=== PATIENT | male | born 1945 | race Caucasian/White ===

== ENCOUNTER 2021-03-30 09:15 | Inpatient (IN) | payer MEDICARE ==
[2021-05-07] MEDS ORDERED: ceFAZolin 2 GM/DEX 5% 100 ML BAG ONE (05:53)
[2021-05-07] MEDS ORDERED: Sodium Chloride 0.9% 100 ML ONE (05:53)
[2021-05-07] MEDS ORDERED: Tranexamic Acid 1,000 MG/10 ML VIAL ONE ×2 (05:53→10:32)
[2021-05-07] MEDS ORDERED: VANCOMYCIN 2 GRAM/400 ML BAG 2 GM in Premix Bag 1 BAG IVPB SCH (06:15)
[2021-05-07] MEDS ORDERED: Fentanyl 100 MCG/2 ML VIAL ONE ×2 (06:29→07:22)
[2021-05-07] MEDS ORDERED: SUGAMMADEX SODIUM 200 MG/2 ML VIAL ONE ×2 (06:29→09:51)
[2021-05-07] MEDS ORDERED: PROPOFOL 200 MG/20 ML VIAL ONE (07:03)
[2021-05-07] MEDS ORDERED: PHENYLEPHRINE-NS 100 MCG/ML 10 ML SYRINGE ONE ×2 (07:03→08:17)
[2021-05-07] MEDS ORDERED: Ropivacaine 0.5% HCl/PF (150 MG/30 ML VIAL) ONE (07:03)
[2021-05-07] MEDS ORDERED: Ondansetron PF 4 MG/2 ML Vial ONE (07:03)
[2021-05-07] MEDS ORDERED: Dexamethasone 20 MG/5 ML VIAL ONE (07:03)
[2021-05-07] MEDS ORDERED: Rocuronium Bromide 10 MG/ML (10ML VIAL) ONE (07:03)
[2021-05-07] MEDS ORDERED: Midazolam HCl 2 mg/2 ml Vial ONE (08:11)
[2021-05-07] MEDS ORDERED: Phenylephrine 10 MG/ML VIAL ONE (08:17)
[2021-05-07] MEDS ORDERED: HYDROcodone/Acetaminophen 5/325 mg Tablet PO PRN ×2 (10:00)
[2021-05-07] MEDS ORDERED: traMADol HCl 50 MG TAB PO PRN ×4 (10:00→13:20)
[2021-05-07] MEDS ORDERED: Promethazine HCl 25 MG/ML VIAL IM PRN (10:00)
[2021-05-07] MEDS ORDERED: Zolpidem Tartrate 5 MG TAB PO PRN ×2 (10:00→13:20)
[2021-05-07] MEDS ORDERED: Ropivacaine 0.2% 550 ML 550 ML NERVE BLCK SCH (10:00)
[2021-05-07] MEDS ORDERED: Ondansetron PF 4 MG/2 ML Vial IVP PRN ×2 (10:00→13:20)
[2021-05-07] MEDS ORDERED: Ondansetron ODT 4 MG TAB PO PRN (13:20)
[2021-05-07] MEDS ORDERED: diphenhydrAMINE 50 MG CAP PO PRN (13:20)
[2021-05-07] MEDS ORDERED: Milk Of Magnesia 30 ML UDCUP PO PRN (13:20)
[2021-05-07] MEDS ORDERED: Acetaminophen 325 MG TAB PO PRN (13:20)
[2021-05-07] MEDS ORDERED: HYDROcodone/Acetaminophen 10/325 mg Tablet PO PRN ×2 (13:20)
[2021-05-07] MEDS ORDERED: Bisacodyl 10 MG SUPP PR PRN (13:20)
[2021-05-07] MEDS ORDERED: Methocarbamol 500 MG TAB PO PRN (13:20)
[2021-05-07] MEDS ORDERED: CEFAZOLIN 2 GM in Premix Bag 1 BAG IVPB SCH (14:00)
[2021-05-07] MEDS ORDERED: Vancomycin 1.5 GRAM/300 ML BAG 1.5 GM in Premix Bag 1 BAG IVPB SCH (18:00)
[2021-05-07] MEDS: Mometasone 200 MCG/Formoterol 5 MCG 120 PUFF INHALER INH SCH (18:34)
[2021-05-07] MEDS: Lactated Ringer's 1,000 ML IV SCH (18:40)
[2021-05-07] MEDS: ceFAZolin Sodium/D5W 2 GM in Premix Bag 1 BAG IVPB SCH ×2 (18:47→21:30)
[2021-05-07] MEDS: Ketorolac Tromethamine 30 MG/ML VIAL IVP SCH (18:48)
[2021-05-07 20:19] VITALS: BMI 40.1
[2021-05-07] MEDS: Famotidine 20 MG TAB PO SCH (21:30)
[2021-05-08] MEDS: Ketorolac Tromethamine 30 MG/ML VIAL IVP SCH ×3 (00:43→11:24)
[2021-05-08] MEDS: Mometasone 200 MCG/Formoterol 5 MCG 120 PUFF INHALER INH SCH (06:44)
[2021-05-08] MEDS: Lactated Ringer's 1,000 ML IV SCH (06:54)
[2021-05-08] MEDS: Famotidine 20 MG TAB PO SCH (08:50)
[2021-05-08] MEDS ORDERED: Tamsulosin HCl 0.4 MG CAP PO SCH (09:00)
[2021-05-08] MEDS ORDERED: FLU VACC QS2021-22(65YR UP)/PF 240 MCG/0.7 ML SYRINGE IM ONE (09:00)
[2021-05-08] MEDS ORDERED: Furosemide 20 MG TAB PO SCH (09:00)
[2021-05-08 11:15] VITALS: TEMP 97.8
[2021-05-08 15:37] VITALS: BP 137/83
== END 2021-05-08 15:55 | disposition home or self-care (01) | DRG 483 ==
LOC: EDSTATUS 04-02 09:15 → SURG A 05-07 05:36 → SURG B 05-07 12:46
PROVIDERS: ADMIT Orthopaedic Surgery; ATTEND Orthopaedic Surgery
PROC: 0RRJ00Z Replacement of Right Shoulder Joint with Reverse Ball and Socket Synthetic Substitute, Open Approach (ICD-10-PCS; principal; 2021-05-07)
PROC: 0LS30ZZ Reposition Right Upper Arm Tendon, Open Approach (ICD-10-PCS; 2021-05-07)
DX: M19.011 Primary osteoarthritis, right shoulder (principal); M75.101 Unspecified rotator cuff tear or rupture of right shoulder, not specified as traumatic
CPT/HCPCS: 85610; 94660; A4306; C1713; C1776; J1100; J1885; J2250; J2370; J2405; J2704; J2795; J3010; J3490; U0003; U0005

== ENCOUNTER 2021-05-05 14:41 | Outpatient (CLI) | payer MEDICARE ==
[2021-05-06 00:28] LABS: SARS-CoV-2 PCR by NAA Not Detected (NotDetected)
== END 2021-05-05 14:42 | disposition home or self-care (01) ==
LOC: LABBT 14:41
PROVIDERS: ATTEND Orthopaedic Surgery
DX: Z01.812 Encounter for preprocedural laboratory examination (principal); M19.011 Primary osteoarthritis, right shoulder; Z20.822 Contact with and (suspected) exposure to COVID-19
CPT/HCPCS: U0003; U0005

== ENCOUNTER 2022-02-26 14:31 | Outpatient (CLI) | payer MEDICARE ==
[2022-02-26 15:22] LABS: #Eosinphils 0.1 10x3/uL (0.0-0.5); #Monocytes 0.7 10x3/uL (0.0-1.1); #Neutrophils 5.2 10x3/uL (1.5-8.4); %Basophils 0.5 % (0.0-2.0); %Eosinophils 1.8 % (0.0-6.0); %Lymphocytes 20.7 % (18.0-47.0); %Monocytes 9.1 % (0.0-10.0); %Neutrophils 67.6 % (40.0-75.0); Hemoglobin 16.5 g/dL (13.5-17.5); Mean Corpuscular Hemoglobin 30.3 pg (27.0-33.0); Mean Corpuscular Volume 89.2 fl (81.2-95.1); Platelet Count 166 10x3/uL (150-450); RBC Distribution Width 13.7 % (11.5-14.5); Red Blood Cell (RBC) Count 5.44 10x6/uL (4.32-5.72); White Blood Cell (WBC) Count 7.7 10x3/uL (3.5-10.5)
[2022-02-26 15:30] LABS: Bacteria/HPF None Seen HPF (None Seen); RBC/HPF 0-3 HPF (0-3); Squamous Epithelial 0-3 HPF (0-3); WBC/HPF 0-3 HPF (0-3)
== END 2022-02-26 14:32 | disposition home or self-care (01) ==
LOC: LABBT 14:31
PROVIDERS: ATTEND Orthopaedic Surgery Hand Surgery
DX: Z01.818 Encounter for other preprocedural examination (principal); G56.02 Carpal tunnel syndrome, left upper limb; Z20.822 Contact with and (suspected) exposure to COVID-19
CPT/HCPCS: 81015; 85025; 87811

== ENCOUNTER 2022-03-02 11:03 | Day surgery (SDC) | payer MEDICARE ==
[2022-03-01 10:46] VITALS: BMI 39.7
[2022-03-02] MEDS ORDERED: Lidocaine 1% MPF 2 ML VIAL ONE (12:13)
[2022-03-02] MEDS ORDERED: Neomycin-Polymyxin 1 ML AMP ONE (12:22)
[2022-03-02] MEDS ORDERED: Bupivacaine PF 0.5% 30 ML VIAL ONE (12:22)
[2022-03-02] MEDS ORDERED: Betamet Acet/Betamet Na Ph 30 MG/5 ML VIAL ONE (12:22)
[2022-03-02] MEDS ORDERED: Bacitracin Zinc Ointment 30 gm TUBE ONE (12:22)
[2022-03-02] MEDS ORDERED: Sodium Chloride 0.9% 100 ML ONE (12:48)
[2022-03-02] MEDS ORDERED: CEFAZOLIN 2 GM VIAL ONE (12:48)
[2022-03-02] MEDS ORDERED: fentaNYL Citrate/PF 100 MCG/2 ML SYRINGE ONE (12:57)
[2022-03-02] MEDS ORDERED: Lidocaine 1% PF 5 ML VIAL ONE (13:14)
[2022-03-02] MEDS ORDERED: Ondansetron PF 4 MG/2 ML Vial ONE (13:14)
[2022-03-02] MEDS ORDERED: Ketorolac Tromethamine 30 MG/ML VIAL ONE (13:14)
[2022-03-02] MEDS ORDERED: Dexamethasone 20 MG/5 ML VIAL ONE (13:14)
[2022-03-02] MEDS ORDERED: PROPOFOL 200 MG/20 ML VIAL ONE (13:14)
== END 2022-03-02 15:43 | disposition home or self-care (01) ==
LOC: SDC 11:03
PROVIDERS: ATTEND Orthopaedic Surgery Hand Surgery
PROC: 01N50ZZ Release Median Nerve, Open Approach (ICD-10-PCS; principal; 2022-03-02)
DX: G56.03 Carpal tunnel syndrome, bilateral upper limbs (principal); Z79.82 Long term (current) use of aspirin; Z79.899 Other long term (current) drug therapy; Z87.891 Personal history of nicotine dependence
CPT/HCPCS: J0690; J0702; J1100; J1885; J2405; J2704; J3490; S0020

== ENCOUNTER 2022-04-15 16:25 | Outpatient (CLI) | payer MEDICARE ==
[2022-04-15 17:30] LABS: #Eosinphils 0.1 10x3/uL (0.0-0.5); #Monocytes 0.7 10x3/uL (0.0-1.1); #Neutrophils 5.7 10x3/uL (1.5-8.4); %Basophils 0.4 % (0.0-2.0); %Eosinophils 0.7 % (0.0-6.0); %Lymphocytes 15.2 % (18.0-47.0); %Monocytes 9.2 % (0.0-10.0); Hemoglobin 15.9 g/dL (13.5-17.5); Mean Corpuscular HGB CONC 34.2 g/dL (32.0-36.0); Mean Corpuscular Hemoglobin 30.3 pg (27.0-33.0); Mean Corpuscular Volume 88.6 fl (81.2-95.1); Mean Platelet Volume 10.7 fl (7.4-10.4); Platelet Count 145 10x3/uL (150-450); RBC Distribution Width 13.9 % (11.5-14.5); Red Blood Cell (RBC) Count 5.25 10x6/uL (4.32-5.72); White Blood Cell (WBC) Count 7.7 10x3/uL (3.5-10.5)
[2022-04-15 17:41] LABS: Prothrombin Time 10.9 sec (9.5-12.1)
[2022-04-15 17:47] LABS: Anion Gap 16 mmol/L (10-20); BUN (Urea Nitrogen) 21 mg/dL (8.4-25.7); Calc. Creatinine Clearance 0 mL/min (70-130); Calcium 8.6 mg/dL (7.8-10.44); Carbon Dioxide 23 mmol/L (23-31); Chloride 108 mmol/L (98-107); Estimated GFR 89; Glucose 93 mg/dL (83-110); Potassium 4.2 mmol/L (3.5-5.1); Sodium 143 mmol/L (136-145)
== END 2022-04-15 16:26 | disposition home or self-care (01) ==
LOC: LABBT 16:25
PROVIDERS: ATTEND Orthopaedic Surgery
DX: Z01.812 Encounter for preprocedural laboratory examination (principal); Z20.822 Contact with and (suspected) exposure to COVID-19
CPT/HCPCS: 80048; 85025; 85610; 87081; 87811

== ENCOUNTER 2022-04-20 05:35 | Inpatient (IN) | payer MEDICARE ==
[2022-04-19 12:18] VITALS: BMI 39.7
[2022-04-20] MEDS ORDERED: Sodium Chloride 0.9% 100 ML ONE ×2 (05:55→06:58)
[2022-04-20] MEDS ORDERED: Tranexamic Acid 1,000 MG/10 ML VIAL ONE ×2 (05:55→09:34)
[2022-04-20] MEDS ORDERED: VANCOMYCIN 2 GRAM/500 ML BAG 2 GM in Premix Bag 1 BAG IVPB SCH (06:00)
[2022-04-20] MEDS ORDERED: Fentanyl 100 MCG/2 ML VIAL ONE ×3 (06:35→11:53)
[2022-04-20] MEDS ORDERED: Midazolam HCl 2 mg/2 ml Vial ONE (06:35)
[2022-04-20] MEDS ORDERED: Lidocaine 1% PF 5 ML VIAL ONE (06:57)
[2022-04-20] MEDS ORDERED: CEFAZOLIN 2 GM VIAL ONE (06:58)
[2022-04-20] MEDS ORDERED: ePHEDrine 50 MG/ML VIAL ONE (07:08)
[2022-04-20] MEDS ORDERED: Ondansetron PF 4 MG/2 ML Vial ONE (07:08)
[2022-04-20] MEDS ORDERED: Ketorolac Tromethamine 30 MG/ML VIAL ONE (07:08)
[2022-04-20] MEDS ORDERED: PROPOFOL 200 MG/20 ML VIAL ONE (07:08)
[2022-04-20] MEDS ORDERED: Lidocaine 1% MPF 2 ML VIAL ONE (07:08)
[2022-04-20] MEDS ORDERED: Rocuronium Bromide 10 MG/ML (10ML VIAL) ONE (07:08)
[2022-04-20] MEDS ORDERED: Ketamine 50 MG/ML (10ML VIAL) ONE (07:12)
[2022-04-20] MEDS ORDERED: fentaNYL Citrate/PF 100 MCG/2 ML SYRINGE ONE (07:12)
[2022-04-20] MEDS ORDERED: Dexmedetomidine 200 MCG/2 ML VIAL ONE (07:12)
[2022-04-20] MEDS ORDERED: HYDROmorphone 0.5 MG/0.5 ML SYRINGE ONE (07:12)
[2022-04-20] MEDS ORDERED: Bupivacaine PF 0.5% 30 ML VIAL ONE ×2 (07:54→08:24)
[2022-04-20] MEDS ORDERED: SUGAMMADEX SODIUM 200 MG/2 ML VIAL ONE ×2 (08:43→09:10)
[2022-04-20] MEDS ORDERED: diphenhydrAMINE 25 MG CAP PO PRN (08:46)
[2022-04-20] MEDS ORDERED: Zolpidem Tartrate 5 MG TAB PO PRN ×2 (08:46→11:00)
[2022-04-20] MEDS ORDERED: Ondansetron PF 4 MG/2 ML Vial IVP PRN ×2 (08:46→11:00)
[2022-04-20] MEDS ORDERED: Acetaminophen 325 MG TAB PO PRN (08:46)
[2022-04-20] MEDS ORDERED: Promethazine HCl 25 MG/ML VIAL IM PRN ×3 (08:46→11:00)
[2022-04-20] MEDS ORDERED: HYDROmorphone 2 MG/ML VIAL SLOW IVP PRN (09:25)
[2022-04-20] MEDS ORDERED: Promethazine HCl 25 MG/ML VIAL IVPB PRN (09:25)
[2022-04-20] MEDS ORDERED: Ondansetron HCl/PF 4 MG/2 ML Vial IVP PRN (09:25)
[2022-04-20] MEDS ORDERED: PACU-Morphine 4MG/ML VIAL SLOW IVP PRN (09:25)
[2022-04-20] MEDS ORDERED: Fentanyl 100 MCG/2 ML VIAL IV PRN (10:52)
[2022-04-20] MEDS ORDERED: traMADol HCl 50 MG TAB PO PRN ×2 (11:00)
[2022-04-20] MEDS ORDERED: Ketorolac Tromethamine 30 MG/ML VIAL IVP SCH (12:00)
[2022-04-20] MEDS: Aspirin 81 mg Enteric Coated Tablet PO SCH ×2 (14:10→21:20)
[2022-04-20] MEDS: Ferrous Gluconate 324 MG TAB PO SCH ×2 (14:10→21:20)
[2022-04-20] MEDS: Sodium Chloride 0.9% 1,000 ML IV SCH ×2 (14:10→18:27)
[2022-04-20] MEDS: Multivitamin W/ Minerals 1 TAB PO SCH (14:11)
[2022-04-20] MEDS: Senokot S 8.6-50 MG TAB PO SCH ×2 (14:11→21:21)
[2022-04-20] MEDS: Ketorolac Tromethamine 30 MG/ML VIAL IVP SCH ×2 (14:41→21:21)
[2022-04-20] MEDS: CEFAZOLIN 2 GM in Sodium Chloride 0.9% 100 ML IVPB SCH ×2 (14:41→21:23)
[2022-04-20] MEDS: Mometasone 200 MCG/Formoterol 5 MCG 120 PUFF INHALER INH SCH (18:58)
[2022-04-21] MEDS: Ketorolac Tromethamine 30 MG/ML VIAL IVP SCH ×4 (03:39→20:12)
[2022-04-21] MEDS: Sodium Chloride 0.9% 1,000 ML IV SCH ×3 (03:41→23:30)
[2022-04-21 06:25] LABS: Hemoglobin 13.3 g/dL (14.0-18.0); Mean Corpuscular Hemoglobin 31.2 pg (27.0-31.0); Mean Corpuscular Volume 94.4 fL (78.0-98.0); Mean Platelet Volume 8.2 fL (7.4-10.4); Platelet Count 126 thou/uL (130-400); RBC Distribution Width 12.5 % (11.5-14.5); Red Blood Cell (RBC) Count 4.28 mill/uL (4.70-6.10); White Blood Cell (WBC) Count 9.2 thou/uL (4.8-10.8)
[2022-04-21] MEDS: Mometasone 200 MCG/Formoterol 5 MCG 120 PUFF INHALER INH SCH ×2 (07:02→19:04)
[2022-04-21] MEDS: Furosemide 20 MG TAB PO SCH (08:58)
[2022-04-21] MEDS: Multivitamin W/ Minerals 1 TAB PO SCH (08:58)
[2022-04-21] MEDS: Ferrous Gluconate 324 MG TAB PO SCH ×2 (08:58→20:12)
[2022-04-21] MEDS: Senokot S 8.6-50 MG TAB PO SCH ×2 (08:58→20:13)
[2022-04-21] MEDS: Aspirin 81 mg Enteric Coated Tablet PO SCH ×2 (08:58→20:12)
[2022-04-21] MEDS: Tamsulosin HCl 0.4 MG CAP PO SCH (08:58)
[2022-04-21] MEDS: HYDROcodone/Acetaminophen 10/325 mg Tablet PO PRN ×2 (14:39→22:33)
[2022-04-22] MEDS: Ketorolac Tromethamine 30 MG/ML VIAL IVP SCH ×2 (04:24→08:33)
[2022-04-22 05:53] LABS: Hemoglobin 12.6 g/dL (14.0-18.0); Mean Corpuscular HGB CONC 32.7 g/dL (32.0-36.0); Mean Corpuscular Hemoglobin 30.4 pg (27.0-31.0); Mean Corpuscular Volume 93.2 fL (78.0-98.0); Mean Platelet Volume 7.9 fL (7.4-10.4); Platelet Count 115 thou/uL (130-400); RBC Distribution Width 12.7 % (11.5-14.5); Red Blood Cell (RBC) Count 4.14 mill/uL (4.70-6.10)
[2022-04-22] MEDS: Mometasone 200 MCG/Formoterol 5 MCG 120 PUFF INHALER INH SCH ×2 (06:52→18:33)
[2022-04-22] MEDS: Senokot S 8.6-50 MG TAB PO SCH ×2 (08:26→19:43)
[2022-04-22] MEDS: Tamsulosin HCl 0.4 MG CAP PO SCH (08:27)
[2022-04-22] MEDS: Multivitamin W/ Minerals 1 TAB PO SCH (08:27)
[2022-04-22] MEDS: Furosemide 20 MG TAB PO SCH (08:27)
[2022-04-22] MEDS: Ferrous Gluconate 324 MG TAB PO SCH ×2 (08:27→19:43)
[2022-04-22] MEDS: Aspirin 81 mg Enteric Coated Tablet PO SCH ×2 (08:27→19:43)
[2022-04-22] MEDS: Sodium Chloride 0.9% 1,000 ML IV SCH ×3 (11:09→21:35)
[2022-04-22] MEDS: HYDROcodone/Acetaminophen 10/325 mg Tablet PO PRN ×2 (13:50→22:21)
[2022-04-23] MEDS: Multivitamin W/ Minerals 1 TAB PO SCH (08:20)
[2022-04-23] MEDS: Tamsulosin HCl 0.4 MG CAP PO SCH (08:20)
[2022-04-23] MEDS: Senokot S 8.6-50 MG TAB PO SCH (08:20)
[2022-04-23] MEDS: Ferrous Gluconate 324 MG TAB PO SCH (08:20)
[2022-04-23] MEDS: Furosemide 20 MG TAB PO SCH (08:21)
[2022-04-23] MEDS: Aspirin 81 mg Enteric Coated Tablet PO SCH (08:21)
[2022-04-23 09:17] VITALS: TEMP 97.2
[2022-04-23] MEDS: HYDROcodone/Acetaminophen 10/325 mg Tablet PO PRN (10:45)
[2022-04-23] MEDS: Mometasone 200 MCG/Formoterol 5 MCG 120 PUFF INHALER INH SCH (10:53)
[2022-04-23 12:40] VITALS: BP 145/82
== END 2022-04-23 12:40 | disposition home health service (06) | DRG 470 ==
LOC: SDC 05:35 → SURG A 08:46 → EDSTATUS 15:00
PROVIDERS: ADMIT Orthopaedic Surgery; ATTEND Orthopaedic Surgery
PROC: 0SR904Z Replacement of Right Hip Joint with Ceramic on Polyethylene Synthetic Substitute, Open Approach (ICD-10-PCS; principal; 2022-04-20)
DX: M16.11 Unilateral primary osteoarthritis, right hip (principal); Z60.2 Problems related to living alone
CPT/HCPCS: 36415; 72170; 85027; C1776; J0690; J1170; J1885; J2250; J2405; J2704; J3010; J3370; J3490; J7030; S0020